=== PATIENT | male | born 1950 | race Caucasian/White ===

== ENCOUNTER 2016-10-20 10:00 | Outpatient (CLI) | payer MEDICARE ==
[2016-10-20 10:34] LABS: Hemoglobin A1c 7.3 % (4.0-6.0)
[2016-10-20 10:51] LABS: ALT (SGPT) 21 U/L (8-55); AST (SGOT) 17 U/L (5-34); Albumin 4.8 g/dL (3.4-4.8); Alkaline Phosphatase 48 U/L (40-150); Anion Gap 16 mmol/L (10-20); BUN (Urea Nitrogen) 26 mg/dL (8.4-25.7); Bilirubin, Total 0.4 mg/dL (0.2-1.2); Calc. Creatinine Clearance 0 mL/min (70-130); Calcium 9.7 mg/dL (7.8-10.44); Carbon Dioxide 24 mmol/L (23-31); Cardiac Risk 3.9 (Less than 4.5); Chloride 103 mmol/L (98-107); Cholesterol 150 mg/dl (< 200 Desired); Estimated GFR-MDRD 66; Globulin 2.5 g/dL (2.4-3.5); Glucose 188 mg/dL (80-115); HDL Cholesterol 38 mg/dL (>60 Neg Risk); LDL Cholesterol, Calculated 52 mg/dL; Potassium 4.7 mmol/L (3.5-5.1); Protein, Total 7.3 g/dL (5.8-8.1); Sodium 138 mmol/L (136-145); Triglycerides 298 mg/dL (Less than 150)
[2016-10-20 11:07] LABS: Free T4 (Free Thyroxine) 0.79 ng/dL (0.70-1.48); Thyroid Stimulating Hormone 3.6429 uIU/mL (0.35-4.94)
[2016-10-20 17:08] LABS: Creatinine, Urine 115.9 mg/dL (63-166)
[2016-10-20 17:49] LABS: HBSAg Index 0.21 S/CO (0-0.99); Hep A IgM S/CO 0.14 S/CO (0-0.79)
[2016-10-20 17:50] LABS: Hep A IgM AB NonReactive (NonReactive); Hep B Surf Ag NonReactive S/CO (NonReactive); Hep C IgG Ab NonReactive (NonReactive); Hepatitis B Core IGM Abs NonReactive (NonReactive)
== END 2016-10-20 10:01 | disposition home or self-care (01) ==
LOC: MADLABBHPM 10:00
PROVIDERS: ATTEND Family Medicine
DX: E78.5 Hyperlipidemia, unspecified (principal); E11.9 Type 2 diabetes mellitus without complications; Z20.5 Contact with and (suspected) exposure to viral hepatitis; Z86.39 Personal history of other endocrine, nutritional and metabolic disease
CPT/HCPCS: 36415; 80053; 80061; 80074; 82043; 83036; 84439; 84443

== ENCOUNTER 2017-01-17 09:18 | Outpatient (CLI) | payer MEDICARE ==
[2017-01-17 09:42] LABS: Hemoglobin A1c 7.4 % (4.0-6.0)
[2017-01-17 10:27] LABS: ALT (SGPT) 21 U/L (8-55); AST (SGOT) 16 U/L (5-34); Albumin 4.7 g/dL (3.4-4.8); Alkaline Phosphatase 52 U/L (40-150); Anion Gap 15 mmol/L (10-20); BUN (Urea Nitrogen) 21 mg/dL (8.4-25.7); Calc. Creatinine Clearance 0 mL/min (70-130); Calcium 9.9 mg/dL (7.8-10.44); Carbon Dioxide 28 mmol/L (23-31); Cardiac Risk 3.4 (Less than 4.5); Chloride 99 mmol/L (98-107); Cholesterol 155 mg/dl (< 200 Desired); Estimated GFR-MDRD 57; Globulin 2.9 g/dL (2.4-3.5); Glucose 170 mg/dL (80-115); HDL Cholesterol 45 mg/dL (>60 Neg Risk); LDL Cholesterol, Calculated 58 mg/dL; Potassium 4.3 mmol/L (3.5-5.1); Protein, Total 7.6 g/dL (5.8-8.1); Sodium 138 mmol/L (136-145); Triglycerides 258 mg/dL (Less than 150)
== END 2017-01-17 09:19 | disposition home or self-care (01) ==
LOC: MADLABBHPM 09:18
PROVIDERS: ATTEND Family Medicine
DX: E11.9 Type 2 diabetes mellitus without complications (principal); E78.5 Hyperlipidemia, unspecified; I10 Essential (primary) hypertension
CPT/HCPCS: 36415; 80053; 80061; 83036